=== PATIENT | male | born 1970 | race Hispanic/Latino ===

== ENCOUNTER 2019-06-08 07:00 | Emergency (ER) | payer SELFPAY ==
[~2019-06-08] VITALS: Ht 170.2 cm; Wt 96.0 kg
[2019-06-08] MEDS ORDERED: TETANUS/DIPHTHERIA TOX ADULT 0.5 ML SYR ONE (07:13)
[2019-06-08] MEDS ORDERED: TETANUS/DIPHTHERIA TOX ADULT 0.5 ML SYR IM ONE (07:15)
[2019-06-08] MEDS ORDERED: NAPROSYN500 MG PO (07:22)
[2019-06-08] MEDS ORDERED: AUGMENTIN 875-1 EACH PO (07:22)
[2019-06-08] MEDS ORDERED: LIDOCAINE HCL 1% LOCAL INJ 20 ML VIAL ONE (07:27)
--- NOTE | 2019-06-08 07:56 | Diagnostic Imaging Report ---
History: Hit the face, laceration bridge of the nose. Comparison studies:None Technique: Axial images were obtained to the vertex and maxillofacial region. Coronal and sagittal images reconstructed from the axial data. Intravenous contrast: None Dose modulation, iterative reconstruction, and/or weight based adjustment of the mA/kV was utilized to reduce the radiation dose to as low as reasonably achievable. Findings: Scalp/skull: No abnormalities. No fractures, blastic or lytic lesions. Extra-axial spaces: No masses. No fluid collections. Brain sulci: Appropriate for age. Ventricles: Normal in size and configuration. No hydrocephalus. Parenchyma: No abnormal densities. No masses, hemorrhage, acute or chronic cortical vascular insults. Sellar/suprasellar region: No abnormalities Craniocervical junction: Patent foramen magnum. No Chiari one malformation. Maxillofacial CT: Soft tissues: Soft tissue swelling and laceration at the bridge of the nose. Bones: Bilateral comminuted nasal bone fractures. Mildly displaced fracture of the nasal spine. Orbits: Globes: Intact Extra or intraconal abnormalities: None. Paranasal sinuses: Clear Incidental findings: Missing dentition, dental cavities and periodontal disease, better assess clinically. Impression: Head CT: 1. No intracranial abnormality Maxillofacial CT: 1. Bilateral comminuted nasal fracture with mildly displaced fracture of the nasal spine. 2. Soft tissue swelling and laceration at the bridge of the nose Signed by: DR Jaskaran Lamar M.D. on 06/08/2019 7:53 AM
[2019-06-08] MEDS ORDERED: BACITRACIN ZINC 0.9GM TP ONE ×2 (08:22→08:45)
[2019-06-08 08:36] VITALS: BP 150/81
[2019-06-08] MEDS ORDERED: LIDOCAINE 1% 5ML-MPF INJ ONE (08:45)
== END 2019-06-08 08:34 | disposition home or self-care (01) ==
LOC: FSED 07:00
DX: S01.21XA Laceration without foreign body of nose, initial encounter (principal); S02.2XXB Fracture of nasal bones, initial encounter for open fracture; S00.531A Contusion of lip, initial encounter; Y04.8XXA Assault by other bodily force, initial encounter; I10 Essential (primary) hypertension
CPT/HCPCS: 12051; 70450; 70486; 90471; 90714; 96372; 99283; J2001